=== PATIENT | male | born 1980 | race Caucasian/White ===

== ENCOUNTER 2016-12-01 16:26 | Emergency (ER) | payer OTHER ==
[2016-12-01 17:06] VITALS: BP 99/80; PULSE 72; RESP 16; TEMP 99.1; O2SAT 93
--- NOTE | 2016-12-01 17:45 | EDPHY ---
H & P Time Seen by Provider: 12/01/16 17:16 HPI/ROS: CHIEF COMPLAINT: Dog bite History by patient HISTORY OF PRESENT ILLNESS: 36-year-old otherwise healthy man presents complaining of dog bite to right middle finger which occurred yesterday. Patient was taking care of his friend's cam who is otherwise healthy and immunized and the dog was trying to get the shower with his so he pulled it away and the dog bit his finger. Today he noticed some redness and swelling in his finger prompting him to seek medical attention. He denies any fever chills. He denies any other pain or injury. His last tetanus shot was within 10 years. REVIEW OF SYSTEMS: As in HPI, and all other systems reviewed and are negative Physical Exam: General Appearance: Alert and no distress. Eyes: Pupils equal and round no injection. Musculoskeletal: Neck is supple and nontender. Extremities: Right middle finger with tooth joseph on the lateral sides of middle D IP joint without drainage, positive swelling of the middle finger with minimal erythema, full range of motion of the IP, PIP and MCP joint without pain , mild tenderness to palpation around the IP, distal cap refill less than 3 seconds, distal sensation intact, other fingers not involved. Skin: No rashes or lesions other than described above. Constitutional: Initial Vital Signs Temperature (C) 37.3 C 12/01/16 17:01 Heart Rate 72 12/01/16 17:01 Respiratory Rate 16 12/01/16 17:01 Blood Pressure 99/80 L 12/01/16 17:01 O2 Sat (%) 93 12/01/16 17:01 O2 Delivery Mode Room Air Allergies/Adverse Reactions: No Known Allergies Allergy (Unverified 12/01/16 17:06) Home Medications: Medication Instructions Recorded Amoxicillin/Clavulanate Pot 875 mg PO BID #14 tab 12/01/16 [Augmentin 875 MG TAB (*)] MDM/Departure - MDM ED Course/Re-evaluation: Patient presents with dog bite to right middle finger with early signs of infection. Patient is not systemically ill there is no evidence of flexor tenosynovitis at this point. Patient was concerned because he is leaving to go on a trip to [facility] tomorrow. I think it is safe for him to travel if we start him on antibiotics. I had an extensive discussion with the patient about infection in his finger as well as signs and symptoms to watch out for if he did not respond antibiotics and seemed to be getting worse including drainage, increased swelling or pain or redness or streaking or spreading or fever. I recommended starting the patient on Augmentin and a prescription was written, however the patient left the emergency department prior to receiving his prescription because he was concerned when he learned that we will required by law to report the dog bite. Nurses did notify animal control. Nurse also left message for the patient on his phone to come back get his prescription because of the concern about infection. - Depart Disposition: Home, Routine, Self-Care Clinical Impression: Dog bite of right hand including fingers with infection Qualifiers: Encounter type: initial encounter Qualified Code(s): S61.451A - Open bite of right hand, initial encounter Condition: Good Instructions: Animal Bite (ED) Additional Instructions: You were seen by Dr. Sonya Bowman today. Take antibiotics as prescribed. Take probiotics 1 today at a different time then the antibiotics to prevent diarrhea. Watch for signs and symptoms of infection including increased redness, fever, drainage from the wound or increased pain. Return for any worsening or new concerns. Prescriptions: Amoxicillin/Clavulanate Pot [Augmentin 875 MG TAB (*)] 875 mg PO BID #14 tab Referrals: NONE *PRIMARY CARE P,. [Primary Care Provider] - As per Instructions
== END 2016-12-01 18:00 | disposition home or self-care (01) ==
LOC: CED 16:26
DX: S61.252A Open bite of right middle finger without damage to nail, initial encounter (principal); S61.451A Open bite of right hand, initial encounter; W54.0XXA Bitten by dog, initial encounter; Y92.009 Unspecified place in unspecified non-institutional (private) residence as the place of occurrence of the external cause